=== PATIENT | male | born 1990 | race Caucasian/White ===

== ENCOUNTER 2019-06-08 19:47 | Emergency (ER) | payer SELFPAY ==
[2019-06-08 19:48] VITALS: BP 138/84; PULSE 105; RESP 18; TEMP 37; O2SAT 98; BMI 21.5
[2019-06-08 19:55] VITALS: BP 138/84; PULSE 95; RESP 17; O2SAT 100
--- NOTE | 2019-06-08 19:55 | XR_ITS ---
WS: [id number] FOOT LEFT TECHNIQUE: 3 views of the left foot CLINICAL INFORMATION: injury COMPARISON: None. FINDINGS: No evidence of acute fracture or dislocation. Normal tarsal metatarsal alignment. Normal calcaneus. N ormal visualized talar dome. No acute findings. XR/XR foot LT min 3V* [id number] IMPRESSION: No acute fractures
--- NOTE | 2019-06-08 19:55 | W.ED.EXTPRO ---
Documented by User: TASHA Mane 06/08/19 19:55 HPI - Extremity Problem General: Chief complaint: Extremity Injury, Lower Stated complaint: L FOOT INJURY Time Seen by Provider: 06/08/19 19:55 Source: patient Mode of arrival: ambulatory Limitations: no limitations Review of Systems General: Reports: 10 or more systems reviewed and unremarkable except in HPI and below PFSH ED PFSH: Social History (Updated 04/21/19 @ 17:33 by Linda Adair LPN) Smoking and tobacco status: current every day smoker Physical Exam Const: COMMON NORMALS: no apparent distress and oriented x3 GENERAL APPEARANCE: cooperative HENMT: COMMON NORMALS: normocephalic, TM's normal bilaterally and external nose normal HEAD & SCALP: normal to inspection and normocephalic NOSE: external nose normal TYMPANIC MEMBRANE: TM's normal bilaterally MOUTH: oral and palatal mucosa normal THROAT: posterior oropharynx normal Eye: GENERAL EYE: normal appearance of both eyes Neck/C-Spine: COMMON NORMALS: full ROM Lymph: LYMPHATIC: no lymphadenopathy noted Chest: COMMONS NORMALS: inspection of chest normal Resp: COMMON NORMALS: normal respiratory effort EFFORT & INSPECTION: Yes able to speak in complete sentences Cardio: COMMON NORMALS: regular rate and regular rhythm RATE: regular rate RHYTHM: regular rhythm GI: COMMON NORMALS: non-tender : COMMON NORMALS: Yes no CVA tenderness BLADDER/KIDNEY EXAM: Yes no CVA tenderness Back/Pelvis: COMMON NORMALS: no CVA tenderness and thoracic and lumbar spine normal to inspection Extremity: COMMON NORMALS: normal to inspection Neuro: COMMON NORMALS: oriented x3 and moves all extremities Psych: COMMON NORMALS: mental status grossly normal and cooperative Skin: COMMON NORMALS: no rashes or lesions noted GENERAL SKIN EXAM: no rashes or lesions noted Course Vital Signs: Vital signs: Vital Signs Temperature 98.6 F 06/08/19 19:48 Pulse Rate 95 06/08/19 19:55 Respiratory Rate 17 06/08/19 19:55 Blood Pressure 138/84 06/08/19 19:55 Pulse Oximetry 100 06/08/19 19:55 Discharge Plan Discharge Prescriptions: No Action No Known Home Medications RF: 0 Coding Level of Care Code ED E Commerce Project Manager for Chg Fwd Exam Comprehensive Documented by User: Jarvis Stinson MD 06/08/19 19:59 HPI - Extremity Problem General: Chief complaint: Extremity Injury, Lower Stated complaint: L FOOT INJURY Time Seen by Provider: 06/08/19 19:55 PFSH ED PFSH: Social History (Updated 04/21/19 @ 17:33 by Linda Adair LPN) Smoking and tobacco status: current every day smoker Course Vital Signs: Vital signs: Vital Signs Temperature 98.6 F 06/08/19 19:48 Pulse Rate 95 06/08/19 19:55 Respiratory Rate 17 06/08/19 19:55 Blood Pressure 138/84 06/08/19 19:55 Pulse Oximetry 100 06/08/19 19:55 Discharge Plan Discharge Prescriptions: No Action No Known Home Medications RF: 0 Coding Level of Care Code ED E Commerce Project Manager for Chg Fwd Exam Comprehensive
--- NOTE | 2019-06-08 19:57 | PC.NURSE ---
Patient states he jumped off a one story building 2 days ago, has had pain in heel of foot since that has not improved with rest and immobilization.
--- NOTE | 2019-06-08 20:02 | W.ED.EXTPRO ---
HPI - Extremity Problem General: Chief complaint: Extremity Injury, Lower Stated complaint: L FOOT INJURY Time Seen by Provider: 06/08/19 19:55 Source: patient Mode of arrival: ambulatory Limitations: no limitations History of Present Illness: HPI Narrative: 28-year-old male who states he jumped off a one-story house he has had left heel pain since then. He states it happened 2 days ago. He has been walking without any problems. He states the heel pain is minimal in nature and rates it a 4 out of 10. Denies any other injuries. MD Complaint: extremity pain Onset (ago): day(s) Location: left Severity scale (1-10): 5 Quality: sharp Relieving factors: nothing Exacerbating factors: nothing Associated symptoms: Deny chest pain, fever(s) or rash Review of Systems Const: Denies: fever, chills, body aches or change in appetite Eyes: Denies: blurry vision or eye discomfort ENMT: Denies: throat pain or dental pain Card: Denies: chest pain Resp: Denies: shortness of breath GI: Denies: abdominal pain, nausea, vomiting or diarrhea : Denies: painful urination Musc: Denies: neck pain or back pain Skin/Breast: Denies: rash Neuro: Denies: headache Psych: Denies: depression Zackery/Lymph: Denies: easy bruising All/Imm: Denies: hives [facility] ED PFSH: Social History (Updated 04/21/19 @ 17:33 by Linda Adair LPN) Smoking and tobacco status: current every day smoker Physical Exam Const: COMMON NORMALS: no apparent distress, oriented x3 and healthy appearing HENMT: COMMON NORMALS: normocephalic and head/scalp atraumatic HEAD & SCALP: normocephalic and atraumatic Eye: COMMON NORMALS: PERRL and EOMs intact bilaterally PUPIL: Yes PERRL Neck/C-Spine: COMMON NORMALS: full ROM and supple Chest: COMMONS NORMALS: inspection of chest normal and palpation of chest normal Resp: COMMON NORMALS: normal respiratory effort, no retractions, no use of accessory muscles and clear to auscultation bilaterally AUSCULTATION: clear to auscultation bilaterally Cardio: COMMON NORMALS: regular rate, regular rhythm and no murmurs RATE: regular rate RHYTHM: regular rhythm GI: COMMON NORMALS: normal to inspection, nondistended, normoactive bowel sounds, soft to palpation, non-tender and no masses PALPATION: Yes soft Extremity: COMMON NORMALS: normal to inspection and full ROM NARRATIVE EXTREMITY EXAM: Slight tenderness to left heel. No swelling at this time. Neuro: COMMON NORMALS: oriented x3, moves all extremities and no focal motor deficits Psych: COMMON NORMALS: mental status grossly normal, thought process normal and cooperative THOUGHT PROCESS: normal thought process Skin: COMMON NORMALS: no rashes or lesions noted and no wounds GENERAL SKIN EXAM: no rashes or lesions noted Course Vital Signs: Vital signs: Vital Signs Temperature 98.6 F 06/08/19 19:48 Pulse Rate 95 06/08/19 19:55 Respiratory Rate 17 06/08/19 19:55 Blood Pressure 138/84 06/08/19 19:55 Pulse Oximetry 100 06/08/19 19:55 MDM - Extremity (Nontraumatic) MDM Narrative: Medical decision making narrative: Patient presents here with heel contusion. X-ray shows no signs of fracture and exam is benign. Patient is stable for discharge and is to ice his heel and is to follow-up with primary care doctor in 3 to 5 days return if worsening. Imaging Data^: xr foot lt: Attestation: I personally reviewed and interpreted this imaging study as follows: My impression: no acute abnormality Discharge Plan Discharge Patient Disposition: Home, Self-Care Clinical Impression: Contusion of foot, left Qualifiers: Encounter type: initial encounter Qualified Code(s): S90.32XA - Contusion of left foot, initial encounter Condition: Stable Prescriptions: New naproxen [EC-Naprosyn] 500 mg tablet,delayed release (DR/EC) 500 mg PO BID PRN (Reason: pain) Qty: 20 RF: 0 No Action No Known Home Medications RF: 0 Discharge Orders: Discharge Order (Routine); Ordered 06/08/19 Ordered By: Jarvis Stinson Discharge Diet: Advance as tolerated Discharge Activity: Resume usual activity Patient Instructions: Foot Contusion (ED) Coding Level of Care Code ED Oil Rig Driller for Julian Fwd Exam Comprehensive
[2019-06-08 20:36] VITALS: PULSE 99; RESP 17; O2SAT 98
== END 2019-06-08 20:36 | disposition home or self-care (01) ==
PROVIDERS: Emergency Provider Emergency Medicine
DX: S90.32XA Contusion of left foot, initial encounter (principal); W17.89XA Other fall from one level to another, initial encounter; F17.200 Nicotine dependence, unspecified, uncomplicated
CPT/HCPCS: 12345; 73630; 99281; 99282

== ENCOUNTER 2019-06-27 14:28 | Outpatient (CLI) | payer SELFPAY ==
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
--- NOTE | 2019-06-27 14:38 | XRR_ITS ---
PROCEDURE INFORMATION: Exam: XR Lumbosacral Spine, 2 or 3 Views Exam date and time: 06/27/2019 2:40 PM Age: 28 years old Clinical indication: Low back pain; Patient HX: C/O lbp 2 weeks after approx. 20ft fall; Additional info: 2 weeks ago fell approx 20ft TECHNIQUE: Imaging protocol: XR of the lumbosacral spine, 2 or 3 views. COMPARISON: No relevant prior studies available. FINDINGS: Vertebrae: Normal. No acute fracture. Normal alignment. Soft tissues: Normal. XR/XR lumbar spine 2-3V* [id number] IMPRESSION: No acute abnormality.
== END 2019-06-27 14:29 | disposition home or self-care (01) ==
LOC: RAD 14:30
PROVIDERS: Visit Provider Nurse Practitioner Family
DX: M54.5 Low back pain (principal); M25.551 Pain in right hip; S79.911A Unspecified injury of right hip, initial encounter; X58.XXXA Exposure to other specified factors, initial encounter
CPT/HCPCS: 72100; 73502

== ENCOUNTER 2021-02-18 07:31 | Inpatient (IN) | payer SELFPAY ==
[2021-02-18 07:36] VITALS: BP 157/108; PULSE 114; RESP 19; TEMP 37.2; O2SAT 96; BMI 22.8
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
--- NOTE | 2021-02-18 08:14 | PC.NURSE ---
PATIENT PLACED IN 4 POINT RESTRAINT AND GIVEN CHEMICAL RESTRAINT PER PROVIDER.
[2021-02-18] MEDS: ziprasidone 20 mg/mL SDV 10 MG IM (08:16)
[2021-02-18] MEDS: LORazepam 2 mg/mL INJ 1 mL IM (08:17)
[2021-02-18 08:25] VITALS: BP 157/108; PULSE 114; RESP 19; O2SAT 96
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
[2021-02-18 09:07] LABS: Basophils % 0.6 %; Eosinophils % 0.3 %; Hematocrit 40.7 % (42.0-52.0); Hemoglobin 13.8 g/dL (11.7-16.6); Lymphocytes # 2.1 10^3/uL (0.8-4.8); Lymphocytes % 29.2 %; Mean Corpuscular HGB Conc 33.9 g/dL (30.0-36.0); Mean Corpuscular Hemoglobin 30.5 pg (28.0-34.0); Mean Platelet Volume 10.2 fL (7.4-10.4); Monocytes # 0.6 10^3/uL (0.2-0.9); Monocytes % 8.7 %; Neutrophils # 4.43 10^3/uL (1.8-7.7); Neutrophils % 60.9 %; Nucleated Red Blood Cells % 0 %; Platelet Count 255 10^3/cmm (130-400); Red Blood Count 4.52 10^6/uL (4.1-5.3); Red Cell Distribution Width 12.8 % (12.1-15.1); White Blood Count 7.3 10^3/uL (4.0-10.0)
[2021-02-18 09:24] LABS: Alanine Aminotransferase 11 U/L (0-41); Albumin Level 4.3 g/dL (3.5-5.2); Alkaline Phosphatase 49 IU/L (40-130); Anion Gap 19.2 (5-19); Aspartate Amino Transferase 16 U/L (0-40); Blood Urea Nitrogen 10 mg/dL (6-20); Calcium 8.5 mg/dL (8.5-10.5); Carbon Dioxide 22 mmol/L (22-29); Chloride 103 mmol/L (98-107); Globulin 2.2 g/dL (1.3-4.6); Glomerular Filtration Rate 100.5 mL/min (90-130); Glucose 96 mg/dL (65-115); Osmolality Calculated 291 mOsm/kg (285-295); Potassium 3.2 mmol/L (3.5-5.1); Sodium 141 mmol/L (136-145); Total Bilirubin 0.5 mg/dL (0.15-1.2); Total Protein 6.5 g/dL (6.6-8.7)
[2021-02-18 09:27] LABS: Acetaminophen < 5.0 ug/mL (10-30); Alcohol Level < 10 mg/dL (0-10); Salicylate < 0.3 mg/dL (3-10)
--- NOTE | 2021-02-18 09:54 | PC.NURSE ---
ALL PATIENT RESTRAINTS REMOVED AT [id number].
[2021-02-18 10:07] LABS: Amphetamines Screen Urine Positive (Negative); Barbiturates Screen Urine Negative (Negative); Benzodiazepines Screen Urine Negative (Negative); Cocaine Screen Urine Negative (Negative); Opiate Screen Urine Negative (Negative); PCP Screen Urine Negative (Negative); THC Screen Urine Negative (Negative)
--- NOTE | 2021-02-18 10:44 | PC.NURSE ---
PATIENT CURRENTLY SEDATED IN ROOM.
[2021-02-18 12:03] VITALS: PULSE 93; RESP 14; O2SAT 97
--- NOTE | 2021-02-18 14:30 | PC.NURSE ---
PATIENT REMAINS SEDATED. UNABLE TO TAKE VITALS AT THIS TIME. PATIENT RESTING IN BED.
[2021-02-18 15:19] VITALS: PULSE 86; O2SAT 98
[2021-02-18 16:41] VITALS: BP 113/73; PULSE 102; RESP 16; TEMP 36.6; O2SAT 99
--- NOTE | 2021-02-18 17:06 | PC.NURSE ---
PATIENT REFUSES TO PARTICIPATE IN ADMISSION QUESTIONS AND ASSESSMENT. PATIENT STATES HE WOULD JUST LIKE TO SLEEP. PATIENT ATE DINNER AND ALLOWED VITAL SIGNS.
[2021-02-18 20:36] VITALS: BP 100/65; PULSE 111; RESP 18; O2SAT 98
[2021-02-19 06:00] VITALS: BP 116/77; PULSE 98; RESP 17; O2SAT 98; BMI 22.8
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
[2021-02-19] MEDS: nicotine 2 mg Gum BUCCAL (11:59)
[2021-02-19 13:57] VITALS: BP 125/80; PULSE 100; RESP 17; TEMP 36.8; O2SAT 97
[2021-02-19] MEDS: OLANZapine 5 mg ODT PO (19:52)
--- NOTE | 2021-02-19 19:57 | PC.NURSE ---
Pt came to desk requesting something to help me calm down. Pt appears anxious and irritable. He stated he is upset because his car is in the impound and every day it sits there he will have a bigger bill that he cannot pay. He states he cannot get a hold of anyone to help him get his car picked up. Patient given hs meds and Zydis. He walked away from the desk angry stating Nobody fucking cares! Will continue to monitor.
[2021-02-19 22:00] VITALS: RESP 18
[2021-02-20 06:00] VITALS: BP 93/58; PULSE 78; RESP 18; O2SAT 97
--- NOTE | 2021-02-20 10:53 | NPU.GN ---
[facility] Topic:Depression/ Anxiety Bingo General Mood of Group: Chetkrystal did not attend group he was sleeping.
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
[2021-02-20 14:00] VITALS: RESP 17
[2021-02-20 22:00] VITALS: RESP 16
[2021-02-21 06:00] VITALS: BP 108/72; PULSE 74; RESP 15; O2SAT 99
--- NOTE | 2021-02-21 11:20 | NPU.GN ---
[facility] Topic:Marielena Word Search General Mood of Group: Veronica did not attend group today he slept today.
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
[2021-02-21 13:46] VITALS: BP 148/79; PULSE 69; RESP 20; TEMP 36.6; O2SAT 99
[2021-02-21] MEDS: nicotine 2 mg Gum BUCCAL ×2 (16:56→19:38)
[2021-02-21] MEDS: quetiapine 100 mg Tablet PO (19:50)
[2021-02-21 20:04] VITALS: BP 129/87; PULSE 91; RESP 16; O2SAT 97
[2021-02-21] MEDS: hyDROXYzine 25 mg Capsule 50 MG PO (20:35)
[2021-02-21] MEDS: haloperidol 5 mg Tablet PO (20:35)
[2021-02-22 06:00] VITALS: RESP 15
--- NOTE | 2021-02-22 10:41 | NPU.GN ---
[facility] Topic:Crisis Plan, Triggers, Coping Mechanisms. General Mood of Group: Veronica did not participate or attend group today. He was sleeping.
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
[2021-02-22 14:00] VITALS: BP 108/63; PULSE 71; RESP 18; TEMP 36.6; O2SAT 97
[2021-02-22] MEDS: nicotine 2 mg Gum BUCCAL (14:59)
[2021-02-22 20:18] VITALS: BP 116/81; PULSE 106; RESP 18; O2SAT 96
[2021-02-22] MEDS: trazodone 50 mg Tablet PO (21:28)
[2021-02-22] MEDS: quetiapine 100 mg Tablet PO (21:28)
[2021-02-22] MEDS: hyDROXYzine 25 mg Capsule 50 MG PO (21:29)
--- NOTE | 2021-02-22 21:30 | PC.NURSE ---
Vistaril 50 mg PO given for sleep and Trazadone 50 mg PO given to help pt sleep.
[2021-02-23 06:00] VITALS: BP 114/73; PULSE 84; RESP 16; O2SAT 97
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
[2021-02-23 10:10] VITALS: BP 114/73; PULSE 84; RESP 16; O2SAT 97
[2021-02-23] MEDS: nicotine 2 mg Gum BUCCAL (10:55)
== END 2021-02-23 11:25 | disposition home or self-care (01) | DRG 897 ==
LOC: ER 07:46 → NP 16:24
PROVIDERS: Physician Assistant; Admitting Provider Psychiatry & Neurology Psychiatry; Emergency Provider Family Medicine; Visit Provider Psychiatry & Neurology Psychiatry
DX: F15.159 Other stimulant abuse with stimulant-induced psychotic disorder, unspecified (principal); F17.210 Nicotine dependence, cigarettes, uncomplicated; F15.10 Other stimulant abuse, uncomplicated
CPT/HCPCS: 70450; 72040; 80053; 80306; 80307; 85025; 96372; 97150; 97165; 99285; J2060; J3486

== ENCOUNTER 2023-01-27 02:57 | Emergency (ER) | payer SELFPAY ==
[2023-01-27 03:03] VITALS: BP 132/82; PULSE 101; RESP 20; TEMP 36.5; O2SAT 98; BMI 19.8
[2023-01-27 03:09] VITALS: BP 132/82; PULSE 103; RESP 18; O2SAT 98
--- NOTE | 2023-01-27 03:10 | W.ED.DENTAL ---
HPI - Dental/Oral General: Chief complaint: Dental/Oral Stated complaint: Dental Time Seen by Provider: 01/27/23 02:59 Source: patient Mode of arrival: ambulatory Limitations: no limitations History of Present Illness: 32-year-old male states he has had dental pain and has developed a dental abscess to his right lower mouth. He has history of poor dentition denies any fever denies any difficulty eating has had no fevers. Associated symptoms: Denies fever(s) Review of Systems Const: Denies: fever(s), chills, body aches or change in appetite ENMT: Reports: dental pain; Denies: throat pain Card: Denies: chest pain Resp: Denies: dyspnea GI: Denies: abdominal pain, nausea, vomiting or diarrhea Musc: Denies: neck pain or back pain Skin/Breast: Denies: rash Neuro: Denies: headache(s) [facility] PFSH: Medical History Methamphetamine abuse Surgical History No pertinent past surgical history Social History Smoking and tobacco/nicotine status: current every day tobacco/nicotine user Substance/Drug Use: current Physical Exam Const: COMMON NORMALS: no acute distress and patient oriented x3 HENMT: COMMON NORMALS: normocephalic and atraumatic HEAD & SCALP: normocephalic and atraumatic OTHER: Very poor dentition does have a dental abscess to right lower molar no trismus Eye: COMMON NORMALS: conjunctivae normal CONJUNCTIVA: Yes conjunctivae normal Neck/C-Spine: COMMON NORMALS: supple Chest: COMMONS NORMALS: normal inspection of the chest Resp: COMMON NORMALS: normal respiratory effort Extremity: COMMON NORMALS: normal to inspection Neuro: COMMON NORMALS: patient oriented x3 Psych: COMMON NORMALS: mental status grossly normal Procedures Abscess I/D Site: oral Local Anesthetic: bupivacaine 0.5% Amount of anesthesia used (mL): 5 Technique: incised with #11 blade Irrigation: No Course Vital Signs: Vital signs: Vital Signs Temperature 97.7 F 01/27/23 03:03 Pulse Rate 103 H 01/27/23 03:09 Respiratory Rate 18 01/27/23 03:09 Blood Pressure 132/82 01/27/23 03:09 Pulse Oximetry 98 01/27/23 03:09 Oxygen Delivery Me thod Room Air 01/27/23 03:09 MDM - Dental/Oral Medical Decision Making Patient presents with a dental abscess was incised and drained we will place on clindamycin he is to follow-up with dentist he is stable for discharge Medical Records I reviewed the patient's medical records. No radiology studies performed this visit Discharge Plan Discharge Patient Disposition: Home Clinical Impression: Dental abscess Condition: Stable Prescriptions: New naproxen [Naprosyn] 500 mg tablet 500 mg PO BID PRN (Reason: pain) Qty: 20 0RF clindamycin HCl [Cleocin HCl] 300 mg capsule 300 mg PO TID 7 Days Qty: 21 0RF No Action prednisone 20 mg tablet See Rx Instructions PO .COMPLEX Qty: 10 0RF Rx Instructions: 2 tabs PO daily x 3 days, 1 tab PO daily x 3 days, 1/2 tab daily x 2 days PO ; tizanidine [Zanaflex] 2 mg capsule 2 mg PO TID PRN (Reason: muscle spasticity) Qty: 20 0RF EC-Naprosyn 500 mg tablet,delayed release (DR/EC) 500 mg PO BID PRN (Reason: pain) Qty: 20 0RF Discharge Orders: Discharge ED (Routine); Ordered 01/27/23 Ordered By: Jarvis Stinson Discharge Diet: Advance as tolerated Discharge Activity: Resume usual activity Patient Instructions: Dental Abscess (ED) Coding Level of Care Code ED Education Reporter for Julian Maharaj
[2023-01-27 03:35] VITALS: BP 137/103; PULSE 108; RESP 18; O2SAT 97
== END 2023-01-27 03:36 | disposition home or self-care (01) ==
PROVIDERS: Emergency Provider Emergency Medicine
DX: K04.7 Periapical abscess without sinus (principal); Z72.0 Tobacco use
CPT/HCPCS: 41800; 99283

== ENCOUNTER 2023-07-10 08:23 | Emergency (ER) | payer SELFPAY ==
[2023-07-10 08:44] VITALS: BP 130/82; PULSE 99; RESP 16; TEMP 36.8; O2SAT 99
[2023-07-10 08:52] LABS: Basophils % 0.6 %; Eosinophils % 0.6 %; Hematocrit 39.1 % (37-53); Lymphocytes # 1.4 10^3/uL (0.8-4.8); Lymphocytes % 40.7 %; Mean Corpuscular Hemoglobin 31.1 pg (27-33); Mean Corpuscular Volume 91.6 fl (82-101); Mean Platelet Volume 9.8 fL (7.4-10.4); Monocytes # 0.4 10^3/uL (0.2-0.9); Neutrophils # 1.53 10^3/uL (1.8-7.7); Neutrophils % 45.1 %; Nucleated Red Blood Cells % 0 %; Platelet Count 168 10^3/cmm (157-399); Red Blood Count 4.27 10^6/uL (3.85-5.65); Red Cell Distribution Width 12.9 % (12.1-15.1); White Blood Count 3.39 10^3/uL (3.29-11.43)
--- NOTE | 2023-07-10 09:08 | W.ED.MALEGU ---
HPI - Male Genitourinary General: Chief complaint: Urogenital-Male Stated complaint: burning when urinating Time Seen by Provider: 07/10/23 08:34 Source: patient Mode of arrival: ambulatory History of Present Illness: 32-year-old male presents to the emergency room with complaints of penile discharge and dysuria. Is been going on for last couple days. He states began after unprotected intercourse with a new partner. Denies any hematuria no history of kidney stones. No fever sweats or chills. No flank pain MD Complaint: penile discharge Onset (ago): day(s) Duration: constant Location: penis Severity: mild Quality: burning Relieving factors: none Exacerbating factors: none Context: new sexual partner Associated symptoms: Reports discharge and dysuria; Deny fevers/chills, hematuria, nausea, rash, swelling, urinary incontinence, urinary retention, mass or vomiting Review of Systems Const: Denies: fever(s) or chills Card: Denies: chest pain Resp: Denies: dyspnea GI: Denies: nausea or vomiting : Reports: dysuria, urinary frequency, urinary urgency and penile discharge; Denies: urinary incontinence or hematuria Musc: Denies: neck pain or back pain Skin/Breast: Denies: rash PFSH ED PFSH: Medical History Methamphetamine abuse Surgical History No pertinent past surgical history Social History Smoking and tobacco/nicotine status: current every day tobacco/nicotine user Substance/Drug Use: current Physical Exam Const: COMMON NORMALS: no acute distress GENERAL APPEARANCE: cooperative and comfortable ORIENTATION/CONSCIOUSNESS: Yes awake, Yes oriented to person, Yes oriented to place and Yes oriented to time HENMT: COMMON NORMALS: normocephalic, atraumatic and hearing grossly normal bilaterally HEAD & SCALP: normocephalic and atraumatic Resp: COMMON NORMALS: normal respiratory effort, No retractions, No use of accessory muscles and clear to auscultation bilaterally AUSCULTATION: clear to auscultation bilaterally Cardio: COMMON NORMALS: regular rate, regular rhythm and No murmurs present (Cardio) RATE: regular rate RHYTHM: regular rhythm GI: COMMON NORMALS: Soft to palpation and No hepatosplenomegaly present AUSCULTATION: Yes normoactive bowel sounds PALPATION: Yes Soft to palpation, No Tenderness to palpation present (GI), No Guarding due to palpation present (GI) and Yes No hepatosplenomegaly present : BLADDER/KIDNEY EXAM: No CVA tenderness Back/Pelvis: GENERAL BACK: No CVA tenderness Extremity: COMMON NORMALS: normal to inspection, capillary refill normal, no clubbing, cyanosis or edema, no calf tenderness and no pedal edema Neuro: SENSORIUM/ORIENTATION: Yes oriented to person, Yes oriented to place and Yes oriented to time Skin: COMMON NORMALS: no rashes or lesions noted GENERAL SKIN EXAM: no rashes or lesions noted Course Vital Signs: Vital signs: Vital Signs Temperature 98.2 F 07/10/23 10:50 Pulse Rate 99 07/10/23 10:50 Respiratory Rate 16 07/10/23 10:50 Blood Pressure 130/82 07/10/23 10:50 Pulse Oximetry 99 07/10/23 10:50 Oxygen Delivery Me thod Room Air 07/10/23 08:44 MDM - Male Medical Decision Making Labs and imaging reviewed will treat for urethritis based on symptoms reported. I will drainage GC and chlamydia ordered wet mount done treated empirically with Rocephin and single dose Zithromax discharged home on doxycycline. Medical Records I reviewed the patient's medical records. Lab Data I reviewed the patient's lab results. 07/10/23 08:45 07/10/23 08:45 Laboratory Results WBC 3.39 10^3/uL (3.29-11.43) 07/10/23 08:45 RBC 4.27 10^6/uL (3.85-5.65) 07/10/23 08:45 Hgb 13.30 g/dL (11.27-16.99) 07/10/23 08:45 Hct 39.1 % (37-53) 07/10/23 08:45 MCV 91.6 fl (82-101) 07/10/23 08:45 MCH 31.1 pg (27-33) 07/10/23 08:45 MCHC 34.0 g/dL (30-55) 07/10/23 08:45 RDW 12.9 % (12.1-15.1) 07/10/23 08:45 Plt Count 168 10^3/cmm (157-399) 07/10/23 08:45 MPV 9.8 fL (7.4-10.4) 07/10/23 08:45 Neut % (Auto) 45.1 % 07/10/23 08:45 Lymph % (Auto) 40.7 % 07/10/23 08:45 Randall % (Auto) 13.0 % 07/10/23 08:45 Eos % (Auto) 0.6 % 07/10/23 08:45 Baso % (Auto) 0.6 % 07/10/23 08:45 Neut # (Auto) 1.53 10^3/uL (1.8-7.7) L 07/10/23 08:45 Lymph # (Auto) 1.4 10^3/uL (0.8-4.8) 07/10/23 08:45 Randall # (Auto) 0.4 10^3/uL (0.2-0.9) 07/10/23 08:45 Eos # (Auto) 0.0 10^3/uL (0.0-0.8) 07/10/23 08:45 Baso # (Auto) 0.0 10^3/uL (0.0-0.1) 07/10/23 08:45 Nucleated RBC % (auto) 0 % 07/10/23 08:45 Nucleated RBCs # 0.0 /100WBC 07/10/23 08:45 Sodium 136 mmol/L (136-145) 07/10/23 08:45 Potassium 3.9 mmol/L (3.5-5.1) 07/10/23 08:45 Chloride 100 mmol/L (98-107) 07/10/23 08:45 Carbon Dioxide 24 mmol/L (22-29) 07/10/23 08:45 Anion Gap 15.9 (5-19) 07/10/23 08:45 BUN 16 mg/dL (6-20) 07/10/23 08:45 Creatinine 0.9 mg/dL (0.7-1.2) 07/10/23 08:45 GFR Calculation 99.1 mL/min (90-130) 07/10/23 08:45 Glucose 105 mg/dL (65-115) 07/10/23 08:45 Calculated Osmolality 284 mOsm/kg (285-295) L 07/10/23 08:45 Calcium 9.0 mg/dL (8.5-10.5) 07/10/23 08:45 Urine Color Yellow (Yellow) 07/10/23 09:04 Urine Appearance Cloudy (CLEAR) A 07/10/23 09:04 Urine pH 6 (5-7) 07/10/23 09:04 Ur Specific Spray 1.020 (1.005-1.030) 07/10/23 09:04 Urine Protein Trace (Negative) 07/10/23 09:04 Urine Glucose (UA) Norm (Normal) 07/10/23 09:04 Urine Ketones Negative (Negative) 07/10/23 09:04 Urine Blood 2+ (Negative) H 07/10/23 09:04 Urine Nitrate Negative (Negative) 07/10/23 09:04 Urine Bilirubin Neg (Negative) 07/10/23 09:04 Urine Urobilinogen 1 mg/dL (Negative) H 07/10/23 09:04 Ur Leukocyte Esterase 2+ (Negative) H 07/10/23 09:04 Urine RBC 5-10 /hpf (0-2) H 07/10/23 09:04 Urine WBC Too numerous to cnt /hpf (0-5) H 07/10/23 09:04 Ur Squamous Epith Cells None /hpf (0-5) 07/10/23 09:04 Amorphous Sediment Not Reportable 07/10/23 09:04 Urine Bacteria Trace /hpf (NONE) 07/10/23 09:04 Urine Mucus Trace /hpf 07/10/23 09:04 No radiology studies performed this visit Discharge Plan Discharge Patient Disposition: Home Clinical Impression: Urethritis Condition: Stable Prescriptions: New doxycycline hyclate 100 mg capsule 100 mg PO BID 14 Days Qty: 28 0RF Discharge Orders: Discharge ED (Routine); Ordered 07/10/23 Ordered By: Neftaly Rock Discharge Diet: Usual diet Discharge Activity: Resume usual activity Patient Instructions: Opioid Safety, Pain Management Activity Restrictions/Additional Instructions: Thank you for choosing [facility] for your healthcare needs today. Please realize this is an emergency room and that we are providing you with a medical screening exam and this may not be complete and all inclusive of all the testing and or work up that you may need to determine your ailment or severity of your illness. It is very important that you follow up as instructed or that you return to the Emergency Department should you have concerns or if your condition changes or worsens in any way. You are seen today with complaints of dysuria and drainage from penis. We are treating you empirically for an STD we will contact you the results when they are available. Coding Level of Care Code ED Sulfate Drier Machine Operator for Julian Maharaj
[2023-07-10 09:17] LABS: Anion Gap 15.9 (5-19); Blood Urea Nitrogen 16 mg/dL (6-20); Carbon Dioxide 24 mmol/L (22-29); Chloride 100 mmol/L (98-107); Glomerular Filtration Rate 99.1 mL/min (90-130); Glucose 105 mg/dL (65-115); Osmolality Calculated 284 mOsm/kg (285-295); Potassium 3.9 mmol/L (3.5-5.1); Sodium 136 mmol/L (136-145)
[2023-07-10 09:23] LABS: Slide Review Slide Review Perform
[2023-07-10 09:40] LABS: Add Urine Microscopic? YES; Bilirubin Urine Neg (Negative); Blood Urine 2+ (Negative); Glucose Urine UA Norm (Normal); Ketones Urine Negative (Negative); Leukocyte Esterase Urine 2+ (Negative); Nitrate Urine Negative (Negative); Protein Urine Trace (Negative); Urine Appearance Cloudy (CLEAR); Urine Color Yellow (Yellow); Urobilinogen Urine 1 mg/dL (Negative); pH Urine 6 (5-7)
[2023-07-10 09:48] LABS: Add Urine Culture? Yes; Bacteria Urine TRACE /hpf; Mucus Urine TRACE /hpf; WBC Urine TOO NUMEROUS TO CNT /hpf (0-5)
[2023-07-10] MEDS: azithromycin 250 mg Tablet 1000 MG PO (10:15)
[2023-07-10] MEDS: cefTRIAXone 500 MG in water for injection-sterile 1 ML IM (10:17)
[2023-07-10 10:50] VITALS: BP 130/82; PULSE 99; RESP 16; TEMP 36.8; O2SAT 99
[2023-07-11 18:55] LABS: Chlamydia Trachomatis RNA TMA NOT DETECTED (NOT DETECTED); Neisseria Gonorrhoeae RNA, TMA DETECTED (NOT DETECTED)
== END 2023-07-10 10:51 | disposition home or self-care (01) ==
PROVIDERS: Emergency Provider Family Medicine
DX: N34.2 Other urethritis (principal); Z72.0 Tobacco use
CPT/HCPCS: 36415; 80048; 81001; 85025; 87086; 87210; 87491; 87591; 96372; 99284; J0696; Q0144

== ENCOUNTER 2023-09-14 08:00 | Emergency (ER) | payer SELFPAY ==
[2023-09-14 08:15] VITALS: BP 138/93; PULSE 106; RESP 18; TEMP 36.6; O2SAT 98
--- NOTE | 2023-09-14 08:26 | XRR_ITS ---
PROCEDURE INFORMATION: Exam: XR Left Wrist Exam date and time: 09/14/2023 8:37 AM Age: 33 years old Clinical indication: Injury or trauma; Fall; Blunt trauma (contusions or hematomas); Wrist; Left TECHNIQUE: Imaging protocol: Radiologic exam of the left wrist. Views: 3 or more views. COMPARISON: CR ( EX, ) 09/14/2023 8:37 AM FINDINGS: Bones/joints: Normal. Soft tissues: Normal. XR/XR wrist LT min 3V* [id number] IMPRESSION: No acute findings.
--- NOTE | 2023-09-14 08:26 | XRR_ITS ---
PROCEDURE INFORMATION: Exam: XR Left Elbow Exam date and time: 09/14/2023 8:37 AM Age: 33 years old Clinical indication: Injury or trauma; Fall; Blunt trauma (contusions or hematomas); Elbow; Left TECHNIQUE: Imaging protocol: Radiologic exam of the left elbow. Views: 3 or more views. COMPARISON: CR (UP EXM, ) 09/14/2023 8:37 AM FINDINGS: Bones/joints: On the oblique view, there may be a tiny fracture involving the cortex of the radial neck. No fracture or dislocation is otherwise appreciated. No posterior fat pad is identified however, the anterior fat pad is slightly saileld suggesting there may be a joint effusion. Soft tissues: Normal. XR/XR elbow LT min 3V* [id number] IMPRESSION: 1. Findings suspicious for a tiny fracture involving the radial neck.
--- NOTE | 2023-09-14 08:26 | XRR_ITS ---
PROCEDURE INFORMATION: Exam: XR Left Forearm Exam date and time: 09/14/2023 8:37 AM Age: 33 years old Clinical indication: Injury or trauma; Fall; Blunt trauma (contusions or hematomas); Arm, lower; Left TECHNIQUE: Imaging protocol: Radiologic exam of the left forearm. Views: 2 views. COMPARISON: CR (UP EXM, ) 09/14/2023 8:37 AM FINDINGS: Bones/joints: Normal. Soft tissues: Normal. XR/XR forearm LT 2V [id number] IMPRESSION: No acute findings.
--- NOTE | 2023-09-14 09:05 | W.ED.EXTPRO ---
HPI - Extremity Problem General: Chief complaint: Extremity Injury, Upper Stated complaint: left arm pain Time Seen by Provider: 09/14/23 08:25 Source: patient Mode of arrival: ambulatory History of Present Illness: 33-year-old male presents to the emergency room with complaint of falling off a skateboard around 5 to 7 days ago he could not tell me exactly how many days it has been he told me a week he told nurse that it is been 5 days. He is awake and alert cannot tell me how he impacted the elbow he said he just fell. Cannot recall if he landed directly on the elbow or landed on an outstretched hand. Most of his pain is at the elbow he has pain with pronation and supination and also has pain with full extension. Patient denies any other injuries MD Complaint: joint pain Onset (ago): day(s) (5-7) Pain Consistency: intermittent Location: left and elbow Quality: sharp Relieving factors: immobilization Exacerbating factors: range of motion [facility] ED PFSH: Medical History Methamphetamine abuse Surgical History No pertinent past surgical history Social History Smoking and tobacco/nicotine status: current every day tobacco/nicotine user Substance/Drug Use: current Physical Exam Narrative: EXAM NARRATIVE: Examination of the left elbow there are some dry eschars over the lateral epicondyle. No obvious deformities no ecchymosis there is no abrasions or injury to the palm. Pain at end range of motion on full extension and supination at the elbow. Course Vital Signs: Vital signs: Vital Signs Temperature 97.8 F 09/14/23 08:15 Pulse Rate 106 H 09/14/23 08:15 Respiratory Rate 18 09/14/23 08:15 Blood Pressure 138/93 09/14/23 08:15 Pulse Oximetry 98 09/14/23 08:15 Oxygen Delivery Me thod Room Air 09/14/23 08:15 MDM - Extremity (Nontraumatic) Medical Decision Making There are no acute fractures on the elbow or wrist. Particularly evaluating the radial head I do not see any acute fractures radiology is still overreading. Will place patient in a arm sling and use anti-inflammatories refer to Ortho. no use of the left arm until orthopedic evaluation. Radiology over read was suspicious for a possible fracture at the radial neck. Clinically we are also suspicious of this and treated him for this with a sling anti-inflammatories and referral to orthopedics. Case management make arrangements for Ortho follow-up Medical Records I reviewed the patient's medical records. Lab Data I reviewed the patient's lab results. (X-rays) Radiology Impressions Elbow X-Ray 09/14/23 08:26 IMPRESSION: 1. Findings suspicious for a tiny fracture involving the radial neck. Forearm X-Ray 09/14/23 08:26 IMPRESSION: No acute findings. Wrist X-Ray 09/14/23 08:26 IMPRESSION: No acute findings. XR interpretation done by ED provider, pending radiology final review Discharge Plan Discharge Patient Disposition: Home Clinical Impression: Left elbow pain Condition: Stable Prescriptions: New diclofenac sodium 75 mg tablet,delayed release (DR/EC) 75 mg PO Q12H PRN (Reason: pain) Qty: 20 0RF Discharge Orders: Discharge ED (Routine); Ordered 09/14/23 Ordered By: Neftaly Rock Discharge Diet: Usual diet Discharge Activity: Limit activity as instructed Patient Instructions: Opioid Safety, Pain Management Activity Restrictions/Additional Instructions: Thank you for choosing [facility] for your healthcare needs today. It is very important that you follow up as instructed or that you return to the Emergency Department should you have concerns or if your condition changes or worsens in any way. You were seen in the emergency room for complaint of left elbow pain. X-rays did not show any acute fractures radiologist will over read them. Because of the degree of discomfort you had with range of motion in the elbow recommend that you place in a splint do not use the left arm. Case management make arrangements for you to follow-up with orthopedics. Coding Level of Care Code ED Transformer Coil Winder for Julian Maharaj
--- NOTE | 2023-09-14 09:30 | PC.NURSE ---
pt refusing splint to L arm, attempted to re-educate, pt still refusing. states I can splint my own arm . pt given sling.
--- NOTE | 2023-09-16 07:40 | DCPLANNER ---
message sent to ortho for er f/u
== END 2023-09-14 09:34 | disposition home or self-care (01) ==
PROVIDERS: Emergency Provider Family Medicine
DX: M25.522 Pain in left elbow (principal); Z72.0 Tobacco use
CPT/HCPCS: 73080; 73090; 73110; 99283